=== PATIENT | female | born 1970 | race African-American/Black ===

== ENCOUNTER 2023-12-10 12:58 | Inpatient (IN) | payer OTHER ==
[2023-12-10 15:58] LABS: BASO % 0.5 % (0-2.0); EOS % 2.4 % (0-4.5); HEMOGLOBIN 10.2 GM/dL (10.7-15.3); LYMPH % 15.9 % (8-40); MCH 30.3 pg (25.7-33.7); MCHC 32.8 g/dl (32.0-36.0); MEAN CELL VOLUME 92.3 fl (80-96); MEAN PLT VOLUME 10.2 fl (7.5-11.1); MONO % 6.2 % (3.8-10.2); PLATELET COUNT 167 10^3/uL (134-434); RBC 3.36 M/mm3 (3.60-5.2); RDW 16.7 % (11.6-15.6); WHITE BLOOD COUNT 6.2 K/mm3 (4.0-10.0)
[2023-12-10 16:03] LABS: INR 1.02 (0.83-1.09); PROTHROMBIN TIME (PATIENT) 11.8 SEC (9.7-13.0)
[2023-12-10 16:06] LABS: ACTIVATED PTT 26.6 SECONDS (25.2-36.5)
[2023-12-10] MEDS: SODIUM CHLORIDE 1,000 ML IV SCH (16:16)
[2023-12-10 16:19] LABS: CALCIUM 9.3 mg/dL (8.5-10.1)
[2023-12-10 16:20] LABS: ALBUMIN 2.6 g/dl (3.4-5.0)
[2023-12-10 16:21] LABS: BLOOD UREA NITROGEN 29.6 mg/dL (7-18)
[2023-12-10 16:23] LABS: CREATININE 4.1 mg/dL (0.55-1.3)
[2023-12-10 16:25] LABS: TOT PROT 7.7 g/dl (6.4-8.2)
[2023-12-10 16:26] LABS: BILIRUBIN,TOTAL 0.6 mg/dL (0.2-1)
[2023-12-11 03:51] LABS: EPI CELLS >36 /uL (0-25.1); HYALINE CASTS 236 /uL (0-3.1); URINE APPEARANCE TURBID; URINE BACTERIA 6118 /uL (0-1359); URINE BILIRUBIN NEGATIVE (NEGATIVE); URINE COLOR DK YELLOW; URINE GLUCOSE (UA) NEGATIVE (NEGATIVE); URINE KETONE NEGATIVE (NEGATIVE); URINE LEUK ESTERASE 3+ (NEGATIVE); URINE NITRITE NEGATIVE (NEGATIVE); URINE PROTEIN 3+ (NEGATIVE); URINE UROBILINOGEN 0.2 mg/dL (0.2-1.0); URINE WBC 20543 /uL (0-25.8)
[2023-12-11 06:54] LABS: URINE RBC 131.3 /uL (0-23.9); YEAST PRESENT (NEGATIVE)
[2023-12-11 07:35] LABS: POTASSIUM 3.4 mmol/L (3.5-5.1)
[2023-12-11 07:37] LABS: BLOOD UREA NITROGEN 31.8 mg/dL (7-18); MAGNESIUM 2.2 mg/dL (1.8-2.4)
[2023-12-11 07:40] LABS: CREATININE 4.5 mg/dL (0.55-1.3); PHOSPHOROUS 3.7 mg/dL (2.5-4.9)
[2023-12-11] MEDS ORDERED: ALBUTEROL SO4 2.5/IPRATROPIUM 0.5 INH SOL 3 ML VIAL.NEB. NEB PRN (08:33)
[2023-12-11] MEDS ORDERED: BISACODYL 10 MG SUPP.RECT PR PRN (08:34)
[2023-12-11 08:36] LABS: HEMATOCRIT 26.8 % (32.4-45.2); HEMOGLOBIN 8.9 GM/dL (10.7-15.3); MCH 30.5 pg (25.7-33.7); MCHC 33.1 g/dl (32.0-36.0); MEAN CELL VOLUME 92.2 fl (80-96); PLATELET COUNT 145 10^3/uL (134-434); RBC 2.91 M/mm3 (3.60-5.2); RDW 16.8 % (11.6-15.6)
[2023-12-11] MEDS ORDERED: SILVER SULFADIAZINE 1% TOP CREAM 50 GM JAR TP PRN (08:38)
[2023-12-11 09:24] LABS: ANISOCYTOSIS 1+; MACROCYTOSIS 0
[2023-12-11] MEDS: LIDOCAINE 4% PATCH TP SCH (10:21)
[2023-12-11] MEDS: HEPARIN NA (PORCINE) 5,000 UNITS/ML 1ML VIAL SQ SCH (13:53)
[2023-12-11] MEDS: AMINO ACIDS 4.25%/D5W 1,000 ML IV SCH (16:37)
[2023-12-11] MEDS: FAMOTIDINE 20 MG/50 ML IVPB 20 MG/50 ML MG IVPB SCH (16:37)
[2023-12-11] MEDS ORDERED: SODIUM CHLORIDE 250 ML IV PRN (20:14)
[2023-12-11] MEDS: CEFTRIAXONE 1 GM in DEXTROSE 5%-WATER - 50 ML IVPB ONE (21:29)
[2023-12-11] MEDS: LIDOCAINE PATCH REMOVAL MC SCH (21:30)
[2023-12-11] MEDS: SILVER SULFADIAZINE 1% TOP CREAM 400 GM JAR TP SCH (21:30)
[2023-12-12] MEDS: ACETAMINOPHEN 1000 MG/100 ML BAG IVPB PRN (02:00)
[2023-12-12] MEDS: oxyCODONE HCL 5 MG TABLET PEG ONE (02:53)
[2023-12-12 08:31] LABS: POTASSIUM 3.6 mmol/L (3.5-5.1)
[2023-12-12 08:33] LABS: CALCIUM 8.5 mg/dL (8.5-10.1); HEMATOCRIT 26.2 % (32.4-45.2); HEMOGLOBIN 8.6 GM/dL (10.7-15.3); MCH 30.7 pg (25.7-33.7); MCHC 32.7 g/dl (32.0-36.0); MEAN CELL VOLUME 93.8 fl (80-96); MEAN PLT VOLUME 10.3 fl (7.5-11.1); PLATELET COUNT 145 10^3/uL (134-434); RBC 2.79 M/mm3 (3.60-5.2); RDW 16.3 % (11.6-15.6); WHITE BLOOD COUNT 7.7 K/mm3 (4.0-10.0)
[2023-12-12 08:34] LABS: ALBUMIN 2.5 g/dl (3.4-5.0); BLOOD UREA NITROGEN 35.3 mg/dL (7-18)
[2023-12-12 08:37] LABS: CREATININE 5.5 mg/dL (0.55-1.3)
[2023-12-12 08:38] LABS: BILIRUBIN,TOTAL 0.4 mg/dL (0.2-1); TOT PROT 6.9 g/dl (6.4-8.2)
[2023-12-12] MEDS: FUROSEMIDE 40 MG/4 ML INJECTABLE VIAL IVPUSH ONE (11:02)
[2023-12-12] MEDS: oxyCODONE HCL 5 MG TABLET PO PRN (11:02)
[2023-12-12] MEDS: PREGABALIN 100 MG CAPSULE PO SCH (14:04)
[2023-12-12] MEDS: EPOETIN ALFA-EPBX 4,000 UNIT/ML VIAL IVPUSH ONE (16:52)
[2023-12-12] MEDS: CARVEDILOL 12.5 MG TABLET (FP) PO SCH (21:50)
[2023-12-13] MEDS: ACETAMINOPHEN 1000 MG/100 ML BAG IVPB ONE (15:37)
[2023-12-13] MEDS: CEFTRIAXONE 1 GM in DEXTROSE 5%-WATER - 50 ML IVPB ONE (15:42)
[2023-12-13] MEDS ORDERED: VANCOMYCIN 1 GM PREMIX - 1 GM/200 ML BAG IVPB ONE (20:39)
[2023-12-13 20:45] LABS: ARTERIAL BLD GAS O2 SATURATION 94.9 % (95-98); ARTERIAL BLOOD GAS BASE EXCESS 4.3 mmol/L (-2-2); ARTERIAL BLOOD GAS PO2 68.2 mmHg (80-100); ARTERIAL BLOOD GAS pH 7.488 (7.350-7.450)
[2023-12-13 21:15] LABS: ALLENS TEST POSITIVE
[2023-12-13] MEDS: ACETAMINOPHEN 1000 MG/100 ML BAG IVPB PRN (21:33)
[2023-12-13] MEDS: PIPERACILLIN/TAZOB 4.5 GM 4.5 GM in DEXTROSE 5%-WATER 100 ML IVPB ONE (21:36)
[2023-12-13] MEDS: VANCOMYCIN/WATER FOR INJ (PEG) 1 GM/200 ML BAG IVPB ONE (21:36)
[2023-12-14] MEDS: PIPERACILLIN/TAZOB 2.25 GM 2.25 GM in DEXTROSE 5%-WATER - 50 ML IVPB SCH (05:06)
[2023-12-14 08:02] LABS: BASO % 0.4 % (0-2.0); EOS % 1.4 % (0-4.5); HEMATOCRIT 33.6 % (32.4-45.2); HEMOGLOBIN 10.8 GM/dL (10.7-15.3); LYMPH % 4.7 % (8-40); MCH 29.9 pg (25.7-33.7); MCHC 32.1 g/dl (32.0-36.0); MEAN CELL VOLUME 93.3 fl (80-96); MEAN PLT VOLUME 9.8 fl (7.5-11.1); MONO % 3.6 % (3.8-10.2); NEUT % 89.9 % (42.8-82.8); PLATELET COUNT 171 10^3/uL (134-434); RBC 3.61 M/mm3 (3.60-5.2); RDW 16.4 % (11.6-15.6); WHITE BLOOD COUNT 15.1 K/mm3 (4.0-10.0)
[2023-12-14 08:15] LABS: POTASSIUM 3.2 mmol/L (3.5-5.1)
[2023-12-14 08:17] LABS: CALCIUM 9.2 mg/dL (8.5-10.1)
[2023-12-14 08:18] LABS: ALBUMIN 2.5 g/dl (3.4-5.0); BLOOD UREA NITROGEN 28.9 mg/dL (7-18)
[2023-12-14 08:21] LABS: CREATININE 4.6 mg/dL (0.55-1.3)
[2023-12-14 08:22] LABS: TOT PROT 7.6 g/dl (6.4-8.2)
[2023-12-14] MEDS ORDERED: CEFTRIAXONE 1 GM in DEXTROSE 5%-WATER - 50 ML IVPB SCH (10:00)
[2023-12-14 15:10] VITALS: BMI 29.5
[2023-12-14] MEDS: ASPIRIN 81 MG CHEWABLE TABLETS PEG SCH (20:35)
[2023-12-15] MEDS ORDERED: SODIUM CHLORIDE 250 ML IV PRN (07:03)
[2023-12-15 07:43] LABS: BASO % 0.6 % (0-2.0); HEMATOCRIT 26.6 % (32.4-45.2); HEMOGLOBIN 8.9 GM/dL (10.7-15.3); LYMPH % 12.4 % (8-40); MCH 30.9 pg (25.7-33.7); MCHC 33.5 g/dl (32.0-36.0); MEAN CELL VOLUME 92.4 fl (80-96); MEAN PLT VOLUME 9.9 fl (7.5-11.1); MONO % 10.5 % (3.8-10.2); NEUT % 70.5 % (42.8-82.8); PLATELET COUNT 139 10^3/uL (134-434); RBC 2.88 M/mm3 (3.60-5.2); RDW 16.1 % (11.6-15.6); WHITE BLOOD COUNT 9.3 K/mm3 (4.0-10.0)
[2023-12-15 07:56] LABS: CALCIUM 8.6 mg/dL (8.5-10.1)
[2023-12-15 07:57] LABS: BLOOD UREA NITROGEN 41.2 mg/dL (7-18)
[2023-12-15 08:00] LABS: CREATININE 5.3 mg/dL (0.55-1.3)
[2023-12-15 08:02] LABS: BILIRUBIN,TOTAL 0.6 mg/dL (0.2-1)
[2023-12-15 08:06] LABS: ALBUMIN 1.9 g/dl (3.4-5.0)
[2023-12-15] MEDS: POTASSIUM CHLORIDE ORAL LIQUID 20 MEQ/15 ML PEG ONE (16:30)
[2023-12-15] MEDS: ATORVASTATIN CA 80 MG TABLET (FP) PO SCH (22:21)
[2023-12-16] MEDS: amLODIPine BESYLATE 2.5 MG TABLET (FP) PEG SCH (09:59)
[2023-12-16] MEDS: CLOPIDOGREL BISULFATE 75 MG TABLET (FP) PEG SCH (09:59)
[2023-12-16] MEDS: VITAMIN B COMP W-C 1 EA TABLET (NEPHRO-VITE) GT SCH (13:41)
[2023-12-16] MEDS: AMINO ACIDS/PROTEIN HYDROLYS 30 ML LIQUID.PKT GT SCH (13:41)
[2023-12-17 07:38] LABS: BASO % 0.5 % (0-2.0); EOS % 6.9 % (0-4.5); HEMATOCRIT 25.6 % (32.4-45.2); HEMOGLOBIN 8.6 GM/dL (10.7-15.3); LYMPH % 22.4 % (8-40); MCH 30.8 pg (25.7-33.7); MCHC 33.4 g/dl (32.0-36.0); MEAN CELL VOLUME 92.4 fl (80-96); MEAN PLT VOLUME 9.5 fl (7.5-11.1); MONO % 14.4 % (3.8-10.2); NEUT % 55.8 % (42.8-82.8); PLATELET COUNT 177 10^3/uL (134-434); RBC 2.78 M/mm3 (3.60-5.2)
[2023-12-17 07:54] LABS: POTASSIUM 4.3 mmol/L (3.5-5.1)
[2023-12-17 08:03] LABS: CALCIUM 8.5 mg/dL (8.5-10.1)
[2023-12-17 08:04] LABS: BLOOD UREA NITROGEN 34.4 mg/dL (7-18)
[2023-12-17 08:07] LABS: BILIRUBIN,TOTAL 0.7 mg/dL (0.2-1); CREATININE 4.6 mg/dL (0.55-1.3); TOT PROT 6.2 g/dl (6.4-8.2)
[2023-12-17] MEDS ORDERED: SODIUM CHLORIDE 250 ML IV PRN (09:02)
[2023-12-17] MEDS: EPOETIN ALFA-EPBX 4,000 UNIT/ML VIAL IVPUSH ONE (09:42)
[2023-12-17] MEDS: FAMOTIDINE 20 MG/50 ML IVPB 20 MG/50 ML MG IVPB SCH (12:57)
[2023-12-17] MEDS: ACETAMINOPHEN 1000 MG/100 ML BAG IVPB PRN (14:48)
[2023-12-17] MEDS: DEXAMETHASONE SOD PHOSPHATE 4 MG/1 ML VIAL IVPUSH SCH (14:48)
[2023-12-17] MEDS ORDERED: DEXAMETHASONE SOD PHOSPHATE 4 MG/1 ML VIAL IVPUSH SCH (15:00)
[2023-12-18] MEDS: INSULIN (NOVOLOG) ASPART 100 UNITS/ML 10ML VIAL SQ ONE (22:35)
[2023-12-19] MEDS: hydrALAZINE HCL 20 MG/ML VIAL IVPUSH ONE (03:36)
[2023-12-19] MEDS: INSULIN (NOVOLOG) ASPART 100 UNITS/ML 10ML VIAL SQ ONE (03:36)
[2023-12-19] MEDS ORDERED: SODIUM CHLORIDE 250 ML IV PRN (10:32)
[2023-12-19] MEDS: ALBUMIN HUMAN 25% 12.5 GM/50 ML VIAL IV SCH (15:00)
[2023-12-19] MEDS: EPOETIN ALFA-EPBX 4,000 UNIT/ML VIAL IVPUSH ONE (15:49)
[2023-12-20] MEDS ORDERED: CARVEDILOL 12.5 MG TABLET (FP) PO ONE (18:42)
[2023-12-20] MEDS: hydrALAZINE HCL 10 MG TABLET PO SCH (21:53)
[2023-12-20] MEDS: INSULIN (NOVOLOG) ASPART 100 UNITS/ML 10ML VIAL SQ ONE (23:08)
[2023-12-21] MEDS: INSULIN (NOVOLOG) ASPART 100 UNITS/ML 10ML VIAL SQ ONE (02:34)
[2023-12-21] MEDS: INSULIN ASPART SLIDING SCALE (NOVOLOG) 1 VIAL SQ SCH (02:41)
[2023-12-21] MEDS: hydrALAZINE HCL 20 MG/ML VIAL IVPUSH ONE (06:42)
[2023-12-21] MEDS ORDERED: SODIUM CHLORIDE 250 ML IV PRN (10:20)
[2023-12-21] MEDS: INSULIN (LEVEMIR) 100 UNITS/ML UNITS SQ SCH ×2 (10:31→21:52)
[2023-12-21] MEDS: amLODIPine BESYLATE 2.5 MG TABLET (FP) PEG SCH (10:33)
[2023-12-21] MEDS: ACETAMINOPHEN 325 MG TABLET (FP) PO PRN (10:33)
[2023-12-21] MEDS: DEXAMETHASONE SOD PHOSPHATE 4 MG/1 ML VIAL IVPUSH SCH (10:35)
[2023-12-21] MEDS: hydrALAZINE HCL 10 MG TABLET PO SCH (21:51)
[2023-12-21] MEDS: CARVEDILOL 25 MG TABLET (FP) PO SCH (21:51)
[2023-12-22] MEDS: EPOETIN ALFA-EPBX 4,000 UNIT/ML VIAL IVPUSH ONE (08:44)
[2023-12-23 10:28] LABS: HEMATOCRIT 29.7 % (32.4-45.2); HEMOGLOBIN 9.7 GM/dL (10.7-15.3); MCH 30.4 pg (25.7-33.7); MCHC 32.7 g/dl (32.0-36.0); MEAN CELL VOLUME 93.1 fl (80-96); MEAN PLT VOLUME 9.8 fl (7.5-11.1); PLATELET COUNT 155 10^3/uL (134-434); RBC 3.19 M/mm3 (3.60-5.2); WHITE BLOOD COUNT 15.1 K/mm3 (4.0-10.0)
[2023-12-23 10:48] LABS: POTASSIUM 3.8 mmol/L (3.5-5.1)
[2023-12-23 10:50] LABS: CALCIUM 8.7 mg/dL (8.5-10.1)
[2023-12-23 10:53] LABS: CREATININE 4.4 mg/dL (0.55-1.3)
[2023-12-23 10:55] LABS: BILIRUBIN,TOTAL 0.4 mg/dL (0.2-1); TOT PROT 6.2 g/dl (6.4-8.2)
[2023-12-23 10:57] LABS: ALBUMIN 2.6 g/dl (3.4-5.0); BLOOD UREA NITROGEN 63.8 mg/dL (7-18)
[2023-12-23] MEDS: INSULIN (LEVEMIR) 100 UNITS/ML UNITS SQ SCH (21:43)
[2023-12-24] MEDS ORDERED: SODIUM CHLORIDE 250 ML IV PRN (08:56)
[2023-12-24] MEDS: EPOETIN ALFA-EPBX 4,000 UNIT/ML VIAL IVPUSH ONE (10:10)
[2023-12-25] MEDS ORDERED: SODIUM CHLORIDE 250 ML IV PRN (21:04)
[2023-12-26 08:42] LABS: BASO % 0.2 % (0-2.0); HEMOGLOBIN 9.1 GM/dL (10.7-15.3); LYMPH % 6.5 % (8-40); MCH 30.2 pg (25.7-33.7); MCHC 32.5 g/dl (32.0-36.0); MEAN CELL VOLUME 93.1 fl (80-96); MEAN PLT VOLUME 9.9 fl (7.5-11.1); NEUT % 89.3 % (42.8-82.8); PLATELET COUNT 309 10^3/uL (134-434); RBC 3.01 M/mm3 (3.60-5.2); RDW 18.3 % (11.6-15.6); WHITE BLOOD COUNT 11.5 K/mm3 (4.0-10.0)
[2023-12-26 08:59] LABS: POTASSIUM 4.8 mmol/L (3.5-5.1)
[2023-12-26 09:01] LABS: ALBUMIN 2.5 g/dl (3.4-5.0); BLOOD UREA NITROGEN 71.4 mg/dL (7-18); CALCIUM 8.5 mg/dL (8.5-10.1)
[2023-12-26 09:05] LABS: CREATININE 4.5 mg/dL (0.55-1.3)
[2023-12-26 09:06] LABS: BILIRUBIN,TOTAL 0.4 mg/dL (0.2-1); TOT PROT 5.9 g/dl (6.4-8.2)
[2023-12-26] MEDS: EPOETIN ALFA-EPBX 4,000 UNIT/ML VIAL IVPUSH ONE (09:34)
[2023-12-26] MEDS: INSULIN ASPART SLIDING SCALE (NOVOLOG) 1 VIAL SQ SCH (12:32)
[2023-12-28] MEDS: DEXAMETHASONE SOD PHOSPHATE 4 MG/1 ML VIAL IVPUSH SCH (09:28)
[2023-12-28 23:29] VITALS: RESP 18
[2023-12-29] MEDS ORDERED: SODIUM CHLORIDE 250 ML IV PRN (07:58)
[2023-12-29] MEDS: EPOETIN ALFA-EPBX 4,000 UNIT/ML VIAL IVPUSH ONE (09:01)
[2023-12-29] MEDS: FAMOTIDINE 20 MG/2.5 ML ORAL LIQUID PEG SCH (15:24)
[2023-12-29] MEDS: DEXAMETHASONE 4 MG TABLET (FP) PEG SCH (15:24)
[2023-12-29 21:13] VITALS: BP 148/81; PULSE 93; TEMP 98.1
[2023-12-30] MEDS ORDERED: DEXAMETHASONE 4 MG TABLET (FP) PO SCH (10:00)
== END 2023-12-29 21:27 | DRG 64 ==
LOC: JER 12:58 → JERBED 17:25 → J4W 20:35 → J4S 21:50 → OBSVTOIN 12-13 09:11
PROVIDERS: ADMIT Internal Medicine; ATTEND Internal Medicine
PROC: 5A1D70Z Performance of Urinary Filtration, Intermittent, Less than 6 Hours Per Day (ICD-10-PCS; principal; 2023-12-12)
PROC: 5A1D70Z Performance of Urinary Filtration, Intermittent, Less than 6 Hours Per Day (ICD-10-PCS; 2023-12-15)
PROC: 5A1D70Z Performance of Urinary Filtration, Intermittent, Less than 6 Hours Per Day (ICD-10-PCS; 2023-12-17)
PROC: 5A1D70Z Performance of Urinary Filtration, Intermittent, Less than 6 Hours Per Day (ICD-10-PCS; 2023-12-19)
PROC: 5A1D70Z Performance of Urinary Filtration, Intermittent, Less than 6 Hours Per Day (ICD-10-PCS; 2023-12-22)
PROC: 5A1D70Z Performance of Urinary Filtration, Intermittent, Less than 6 Hours Per Day (ICD-10-PCS; 2023-12-24)
PROC: 5A1D70Z Performance of Urinary Filtration, Intermittent, Less than 6 Hours Per Day (ICD-10-PCS; 2023-12-26)
PROC: 5A1D70Z Performance of Urinary Filtration, Intermittent, Less than 6 Hours Per Day (ICD-10-PCS; 2023-12-29)
DX: I63.89 Other cerebral infarction (principal); G92.8 Other toxic encephalopathy; N18.6 End stage renal disease; R53.2 Functional quadriplegia; I69.354 Hemiplegia and hemiparesis following cerebral infarction affecting left non-dominant side; E46 Unspecified protein-calorie malnutrition; Z68.1 Body mass index [BMI] 19.9 or less, adult; N39.0 Urinary tract infection, site not specified; I12.0 Hypertensive chronic kidney disease with stage 5 chronic kidney disease or end stage renal disease; G37.9 Demyelinating disease of central nervous system, unspecified; R47.01 Aphasia; E11.51 Type 2 diabetes mellitus with diabetic peripheral angiopathy without gangrene; K21.9 Gastro-esophageal reflux disease without esophagitis; E11.42 Type 2 diabetes mellitus with diabetic polyneuropathy; R53.83 Other fatigue; E78.5 Hyperlipidemia, unspecified; E87.6 Hypokalemia; D64.9 Anemia, unspecified; F32.A Depression, unspecified; E11.22 Type 2 diabetes mellitus with diabetic chronic kidney disease; Z99.2 Dependence on renal dialysis; Z93.1 Gastrostomy status
CPT/HCPCS: 36415; 36600; 70450-TC; 70551-TC; 71045-TC-FY; 74230-TC-FY; 80048; 80053; 80061; 81003; 82140; 82550; 82803; 82962; 83036; 83550; 83605; 83735; 84100; 84443; 84484; 85025; 85027; 85610; 85651; 85730; 86038; 86140; 86160; 86704; 86705; 86780; 86803; 86850; 86900; 86901; 87040; 87086; 87186; 87340; 87517; 87635; 92611-GN; 93005; 93010; 93880-TC; 97161-GP; 99285-25; G0378; J0131; J1644; P9047; Q5106

== ENCOUNTER 2024-03-04 18:55 | Inpatient (IN) | payer OTHER ==
[2024-03-04 19:15] VITALS: BMI 30.4
[2024-03-04] MEDS: SODIUM CHLORIDE 0.9% 1000 ML INFUS.BAG IV STA (20:14)
[2024-03-04 20:28] LABS: HEMATOCRIT 27.4 % (32.4-45.2); HEMOGLOBIN 8.9 GM/dL (10.7-15.3); MCH 29.8 pg (25.7-33.7); MCHC 32.6 g/dl (32.0-36.0); MEAN CELL VOLUME 91.4 fl (80-96); MEAN PLT VOLUME 9.5 fl (7.5-11.1); PLATELET COUNT 235 10^3/uL (134-434); RDW 16.5 % (11.6-15.6); WHITE BLOOD COUNT 12.6 K/mm3 (4.0-10.0)
[2024-03-04] MEDS ORDERED: ACETAMINOPHEN INJECTION 100 ML IVPB ONE (20:29)
[2024-03-04 20:33] LABS: INR 1.25 (0.83-1.09)
[2024-03-04 20:34] LABS: VENOUS BASE EXCESS 4.9 mmol/L (-2-2); VENOUS O2 SATURATION 63.2 % (70-80); VENOUS PCO2 44.9 mmHg (38-52)
[2024-03-04] MEDS: ACETAMINOPHEN 1000 MG/100 ML BAG IVPB ONE (20:44)
[2024-03-04 21:27] LABS: ANISOCYTOSIS 1+; MACROCYTOSIS 0; PLATELET ESTIMATE NORMAL
[2024-03-04 21:29] LABS: ALBUMIN 2.6 g/dl (3.4-5.0); BILIRUBIN,TOTAL 0.4 mg/dL (0.2-1); CALCIUM 9.3 mg/dL (8.5-10.1); CREATININE 6.1 mg/dL (0.55-1.3); POTASSIUM 4.9 mmol/L (3.5-5.1)
[2024-03-04 22:29] LABS: EPI CELLS >36 /uL (0-25.1); HYALINE CASTS 1 /uL (0-3.1); PH,URINE 5.5 (5.0-8.0); URINE APPEARANCE TURBID; URINE BACTERIA 3005 /uL (0-1359); URINE BILIRUBIN NEGATIVE (NEGATIVE); URINE COLOR RED; URINE GLUCOSE (UA) NEGATIVE (NEGATIVE); URINE KETONE TRACE (NEGATIVE); URINE LEUK ESTERASE 3+ (NEGATIVE); URINE NITRITE POSITIVE (NEGATIVE); URINE PROTEIN 4+ (NEGATIVE); URINE RBC 1 /uL (0-23.9); URINE UROBILINOGEN 0.2 mg/dL (0.2-1.0); URINE WBC 25 /uL (0-25.8)
[2024-03-04] MEDS ORDERED: PIPERACILLIN/TAZOB 4.5 GM 4.5 GM/100 ML BAG IVPB ONE (22:39)
[2024-03-04] MEDS: VANCOMYCIN 1,000 MG in DEXTROSE 5%-WATER - 250 ML IVPB ONE (22:41)
[2024-03-04] MEDS: PIPERACILLIN/TAZOB 4.5 GM 4.5 GM in DEXTROSE 5%-WATER 100 ML IVPB ONE (23:00)
[2024-03-04] MEDS ORDERED: INSULIN ASPART SLIDING SCALE (NOVOLOG) 1 VIAL SQ ONE (23:43)
[2024-03-04] MEDS: INSULIN (NOVOLOG) ASPART 100 UNITS/ML 10ML VIAL SQ ONE (23:46)
[2024-03-05] MEDS ORDERED: PIPERACILLIN/TAZOB 2.25 GM 2.25 GM in DEXTROSE 5%-WATER - 50 ML IVPB SCH (09:00)
[2024-03-05 09:35] LABS: BASO % 0.8 % (0-2.0); EOS % 1.8 % (0-4.5); HEMATOCRIT 27.5 % (32.4-45.2); HEMOGLOBIN 8.9 GM/dL (10.7-15.3); LYMPH % 12.6 % (8-40); MCH 30.1 pg (25.7-33.7); MCHC 32.3 g/dl (32.0-36.0); MEAN PLT VOLUME 9.3 fl (7.5-11.1); MONO % 8.2 % (3.8-10.2); NEUT % 76.6 % (42.8-82.8); PLATELET COUNT 241 10^3/uL (134-434); RBC 2.95 M/mm3 (3.60-5.2); WHITE BLOOD COUNT 14.4 K/mm3 (4.0-10.0)
[2024-03-05] MEDS: PIPERACILLIN/TAZOB 2.25 GM 2.25 GM in DEXTROSE 5%-WATER - 50 ML IVPB SCH (09:57)
[2024-03-05] MEDS: amLODIPine BESYLATE 10 MG TABLET (FP) GT SCH (09:57)
[2024-03-05] MEDS: LORATADINE 10 MG TABLET GT SCH (09:58)
[2024-03-05] MEDS: LACTOBACILLUS ACIDOPHILUS 1 TABLET GT SCH (09:58)
[2024-03-05] MEDS: ASPIRIN 81 MG CHEWABLE TABLETS GT SCH (09:58)
[2024-03-05] MEDS: CARVEDILOL 25 MG TABLET (FP) GT SCH (09:58)
[2024-03-05] MEDS: FOLIC ACID 1 MG TABLET (FP) GT SCH (09:58)
[2024-03-05] MEDS: CLOPIDOGREL BISULFATE 75 MG TABLET (FP) GT SCH (09:58)
[2024-03-05 10:01] LABS: POTASSIUM 4.6 mmol/L (3.5-5.1)
[2024-03-05 10:05] LABS: CALCIUM 9.2 mg/dL (8.5-10.1)
[2024-03-05 10:10] LABS: CREATININE 6.5 mg/dL (0.55-1.3)
[2024-03-05] MEDS: ISOSORBIDE DINITRATE 10 MG TABLET GT SCH (10:38)
[2024-03-05] MEDS ORDERED: SODIUM CHLORIDE 250 ML IV PRN (13:19)
[2024-03-05] MEDS: VANCOMYCIN/WATER FOR INJ (PEG) 1,000 MG/200 ML BAG IVPB ONE (20:38)
[2024-03-05] MEDS: SENNOSIDES 8.8 MG/5 ML SYRUP GT SCH (21:08)
[2024-03-05] MEDS: ATORVASTATIN CA 10 MG TABLET (FP) GT SCH (21:09)
[2024-03-06] MEDS: PIPERACILLIN/TAZOB 2.25 GM 2.25 GM in DEXTROSE 5%-WATER - 50 ML IVPB SCH (01:39)
[2024-03-06 11:36] LABS: BASO % 0.5 % (0-2.0); EOS % 2.8 % (0-4.5); HEMATOCRIT 22.2 % (32.4-45.2); HEMOGLOBIN 7.3 GM/dL (10.7-15.3); MEAN CELL VOLUME 90.9 fl (80-96); MONO % 11.6 % (3.8-10.2); NEUT % 67.1 % (42.8-82.8); PLATELET COUNT 231 10^3/uL (134-434); RBC 2.44 M/mm3 (3.60-5.2); RDW 15.6 % (11.6-15.6); WHITE BLOOD COUNT 9.9 K/mm3 (4.0-10.0)
[2024-03-06 11:55] LABS: POTASSIUM 3.9 mmol/L (3.5-5.1)
[2024-03-06 11:58] LABS: ALBUMIN 2.1 g/dl (3.4-5.0); CALCIUM 8.8 mg/dL (8.5-10.1)
[2024-03-06 11:59] LABS: BLOOD UREA NITROGEN 33.9 mg/dL (7-18)
[2024-03-06 12:01] LABS: CREATININE 4.9 mg/dL (0.55-1.3)
[2024-03-06 12:03] LABS: BILIRUBIN,TOTAL 0.6 mg/dL (0.2-1); TOT PROT 5.8 g/dl (6.4-8.2)
[2024-03-06] MEDS: INSULIN ASPART SLIDING SCALE (NOVOLOG) 1 VIAL SQ SCH (16:14)
[2024-03-06] MEDS: IRON SUCROSE INJECTION 200 MG in SODIUM CHLORIDE 100 ML IVPB ONE (23:07)
[2024-03-07 09:01] LABS: BASO % 0.7 % (0-2.0); EOS % 4.4 % (0-4.5); HEMATOCRIT 23.2 % (32.4-45.2); HEMOGLOBIN 7.8 GM/dL (10.7-15.3); LYMPH % 22.1 % (8-40); MCH 30.3 pg (25.7-33.7); MCHC 33.6 g/dl (32.0-36.0); MEAN CELL VOLUME 90.1 fl (80-96); MONO % 12.6 % (3.8-10.2); NEUT % 60.2 % (42.8-82.8); PLATELET COUNT 234 10^3/uL (134-434); RBC 2.57 M/mm3 (3.60-5.2); RDW 15.6 % (11.6-15.6); WHITE BLOOD COUNT 8.9 K/mm3 (4.0-10.0)
[2024-03-07 09:17] LABS: CALCIUM 8.7 mg/dL (8.5-10.1)
[2024-03-07 09:21] LABS: CREATININE 5.9 mg/dL (0.55-1.3)
[2024-03-07 09:23] LABS: BILIRUBIN,TOTAL 0.7 mg/dL (0.2-1)
[2024-03-07] MEDS: VITAMIN B COMP W-C 1 EA TABLET (NEPHRO-VITE) PO SCH (10:08)
[2024-03-07] MEDS: COLLAGENASE CLOSTRIDIUM HIST. 30 GRAMS TUBE TP SCH (18:34)
[2024-03-08 10:11] LABS: HEMATOCRIT 23.3 % (32.4-45.2); HEMOGLOBIN 7.8 GM/dL (10.7-15.3); MCHC 33.4 g/dl (32.0-36.0); MEAN CELL VOLUME 89.8 fl (80-96); MEAN PLT VOLUME 9.3 fl (7.5-11.1); PLATELET COUNT 237 10^3/uL (134-434); RBC 2.59 M/mm3 (3.60-5.2); RDW 15.7 % (11.6-15.6); WHITE BLOOD COUNT 8.2 K/mm3 (4.0-10.0)
[2024-03-08] MEDS ORDERED: SODIUM CHLORIDE 250 ML IV PRN (10:15)
[2024-03-08 10:23] LABS: POTASSIUM 4.6 mmol/L (3.5-5.1)
[2024-03-08 10:25] LABS: ALBUMIN 2.1 g/dl (3.4-5.0); CALCIUM 8.7 mg/dL (8.5-10.1)
[2024-03-08 10:26] LABS: BLOOD UREA NITROGEN 52.6 mg/dL (7-18)
[2024-03-08 10:29] LABS: CREATININE 7.1 mg/dL (0.55-1.3)
[2024-03-08 10:30] LABS: BILIRUBIN,TOTAL 0.5 mg/dL (0.2-1); TOT PROT 6.2 g/dl (6.4-8.2)
[2024-03-08] MEDS: EPOETIN ALFA-EPBX 10,000 UNIT/ML VIAL SQ ONE (11:46)
[2024-03-10] MEDS ORDERED: SODIUM CHLORIDE 250 ML IV PRN (09:53)
[2024-03-10] MEDS: EPOETIN ALFA-EPBX 4,000 UNIT/ML VIAL IVPUSH ONE (14:57)
[2024-03-12] MEDS: diphenhydrAMINE HCL 12.5 MG/5 ML UNIT-DOSE CUPS GT PRN (12:59)
[2024-03-12] MEDS: VANCOMYCIN/WATER FOR INJ (PEG) 1,000 MG/200 ML BAG IVPB ONE (14:12)
[2024-03-12] MEDS ORDERED: SODIUM CHLORIDE 250 ML IV PRN (14:46)
[2024-03-12 15:02] VITALS: RESP 18
[2024-03-12 15:25] LABS: HEMATOCRIT 26.8 % (32.4-45.2); HEMOGLOBIN 8.9 GM/dL (10.7-15.3); MCH 29.9 pg (25.7-33.7); MEAN CELL VOLUME 90.6 fl (80-96); MEAN PLT VOLUME 8.2 fl (7.5-11.1); PLATELET COUNT 366 10^3/uL (134-434); RBC 2.96 M/mm3 (3.60-5.2); RDW 16.3 % (11.6-15.6); WHITE BLOOD COUNT 6.8 K/mm3 (4.0-10.0)
[2024-03-12 15:53] LABS: POTASSIUM 3.7 mmol/L (3.5-5.1)
[2024-03-12 15:55] LABS: CALCIUM 9.1 mg/dL (8.5-10.1)
[2024-03-12 16:00] LABS: BILIRUBIN,TOTAL 0.4 mg/dL (0.2-1); TOT PROT 6.6 g/dl (6.4-8.2)
[2024-03-12 16:09] LABS: ALBUMIN 2.5 g/dl (3.4-5.0); BLOOD UREA NITROGEN 21.3 mg/dL (7-18); CREATININE 3.9 mg/dL (0.55-1.3)
[2024-03-12] MEDS: EPOETIN ALFA-EPBX 4,000 UNIT/ML VIAL SQ ONE (16:51)
[2024-03-14] MEDS: ISOSORBIDE DINITRATE 10 MG TABLET GT ONE (16:00)
[2024-03-14 16:03] VITALS: BP 190/93; PULSE 86
[2024-03-14 16:30] VITALS: TEMP 98.1
== END 2024-03-14 16:30 | DRG 871 ==
LOC: JER 18:55 → JERBED 23:14 → J5S 03-05 02:28 → J6S 03-05 20:04 → J5S 03-05 20:44
PROVIDERS: ADMIT Internal Medicine; ATTEND Internal Medicine
PROC: 05HB33Z Insertion of Infusion Device into Right Basilic Vein, Percutaneous Approach (ICD-10-PCS; principal; 2024-03-09)
PROC: B54MZZA Ultrasonography of Right Upper Extremity Veins, Guidance (ICD-10-PCS; 2024-03-09)
DX: A41.9 Sepsis, unspecified organism (principal); N18.6 End stage renal disease; N39.0 Urinary tract infection, site not specified; I12.0 Hypertensive chronic kidney disease with stage 5 chronic kidney disease or end stage renal disease; I69.354 Hemiplegia and hemiparesis following cerebral infarction affecting left non-dominant side; M86.8X7 Other osteomyelitis, ankle and foot; E11.22 Type 2 diabetes mellitus with diabetic chronic kidney disease; L97.529 Non-pressure chronic ulcer of other part of left foot with unspecified severity; L97.519 Non-pressure chronic ulcer of other part of right foot with unspecified severity; Z99.2 Dependence on renal dialysis; E11.51 Type 2 diabetes mellitus with diabetic peripheral angiopathy without gangrene; K21.9 Gastro-esophageal reflux disease without esophagitis; F32.A Depression, unspecified; E11.621 Type 2 diabetes mellitus with foot ulcer
CPT/HCPCS: 0241U-QW; 36415; 70450-TC; 71045-TC-FY; 73630-TC-LT; 73630-TC-RT-FY; 73718-TC-LT; 73718-TC-RT; 80048; 80053; 81003; 82272; 82550; 82728; 82803; 82962; 83036; 83540; 83550; 83605; 84466; 84484; 85025; 85027; 85610; 85730; 86705; 86803; 86850; 86900; 86901; 87040; 87070; 87081; 87086; 87186; 87205; 87340; 93005; 93010; 93925-TC; 99285-25; G0480; J0131; J1756; Q5106